=== PATIENT | male | born 1955 | race Caucasian/White ===

== ENCOUNTER 2025-02-19 11:49 | Outpatient (CLI) | payer MEDICARE, SELFPAY ==
--- NOTE | ~2025-02-19 | US_ITS ---
EXAMINATION: US arterial ankle brachial ind DATE: 02/19/2025 12:23 INDICATION: Decreased lower extremity pulses. TECHNIQUE: Segmental pressures and plethysmographic and Doppler waveforms of the brachial and lower e xtremity arteries were obtained. COMPARISON: None. FINDINGS: Right and left brachial artery pressures of 146 mm Hg and 140 mm Hg, respectively, are concordant (no rmal difference <= 30 mmHg). The right ankle-brachial index (SOLO) is 1.36 (normal >= 0.9-1.0). The right great toe-brachial index (TBI) is 0.88 (normal >= 0.65). Arterial Doppler waveforms are biphasic with brisk systolic upstrokes at both right posterior tibial and dorsalis pedis arteries. The left SOLO is 1.47. The left TBI is 0.90. Arterial Doppler waveforms biphasic with brisk systolic u pstrokes at both left posterior tibial and dorsalis pedis arteries. IMPRESSION: 1. No significant arterial occlusive disease with normal bilateral ABIs and TBIs. Reviewed, dictated and finalized at location A. IMPRESSION: 1. No significant arterial occlusive disease with normal bilateral ABIs and TBI s.
== END 2025-02-19 11:50 | disposition home or self-care (01) ==
LOC: CHSIMG 11:50
PROVIDERS: PCP Family Medicine; Visit Provider Student in an Organized Health Care Education/Training Program
DX: R09.89 Other specified symptoms and signs involving the circulatory and respiratory systems (principal); Z87.891 Personal history of nicotine dependence
CPT/HCPCS: 93922

== ENCOUNTER 2025-02-22 09:30 | Outpatient (CLI) | payer MEDICARE, SELFPAY ==
--- NOTE | ~2025-02-22 | US_ITS ---
EXAMINATION: US aorta [facility] DATE: 02/23/2025 0:11 CDT INDICATION: Personal history of nicotine dependence TECHNIQUE: Grayscale, color Doppler, and pulsed Doppler images of the aorta and common iliac arteries were obtained. COMPARISON: None. FINDINGS: The proximal aorta measures 2.9 x 2.4 cm The mid aorta measures 2.2 x 2.2 cm The distal aorta measures 2.0 x 2.1 cm The right common internal iliac artery measures 1.3 cm The left common iliac artery measures 1.3 cm IMPRESSION: No sonographic evidence of an abdominal aortic aneurysm, as detailed above. Reviewed, dictated and finalized at location A.
== END 2025-02-22 09:31 | disposition home or self-care (01) ==
PROVIDERS: PCP Family Medicine; Visit Provider Student in an Organized Health Care Education/Training Program
DX: Z87.891 Personal history of nicotine dependence (principal)
CPT/HCPCS: 76706

== ENCOUNTER 2025-04-17 14:10 | Outpatient (CLI) | payer MEDICARE, SELFPAY ==
--- NOTE | ~2025-04-17 | MR_ITS ---
MRI of the left knee Clinical history: Pain Technique: Coronal proton density and proton density-weighted images, sagittal proton-density and T2 fat-sat images, and axial proton-density fat-saturated images were acquired. Findings: Anterior cruciate ligament is intact, with some increased signal, suggestive mucoid degener ative signal, less likely partial tear. Posterior cruciate ligament is intact. Medial collateral liga ment and the lateral collateral ligament conflux are intact. Popliteus tendon is intact. There is complex tearing of the posterior horn and body of the medial meniscus which are largely mace rated appearance. No lateral meniscal tear evident. There is high-grade chondromalacia along the medial patellar facet. There is mild to moderate chondra l malacia the femoral trochlea. There is diffuse moderate chondral thinning of the lateral femoral co ndyle. There is extensive high-grade chondral malacia on both sides of the medial compartment, with s ubchondral marrow edema in the anteromedial tibial plateau. Small tricompartment osteophyte are prese nt. Extensor mechanism is intact. Small to moderate joint effusion present. No Zaragoza's cyst. Impression: Extensive complex tearing of the posterior horn and body of the medial meniscus, which are largely ma cerated. 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 Probable mucoid degenerative signal of the ACL versus less likely partial interstitial tear. Small to moderate joint effusion. Reviewed, dictated and finalized at [facility]. Impression: Extensive complex tearing of the posterior horn and body of the medial meniscus , which are largely macerated. 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 Probable mucoid degenerative signal of the ACL versus less likely partial inter stitial tear. Small to moderate joint effusion.
== END 2025-04-17 14:11 | disposition home or self-care (01) ==
LOC: GOSHIMG 14:10
PROVIDERS: PCP Orthopaedic Surgery; Visit Provider Orthopaedic Surgery
DX: S83.232A Complex tear of medial meniscus, current injury, left knee, initial encounter (principal); X58.XXXA Exposure to other specified factors, initial encounter; M17.12 Unilateral primary osteoarthritis, left knee; M25.462 Effusion, left knee
CPT/HCPCS: 73721

== ENCOUNTER 2025-08-07 00:56 | Day surgery (SDC) | payer MEDICARE, SELFPAY ==
[2025-07-27 14:08] VITALS: BMI 39.1
--- NOTE | 2025-07-27 14:28 | PC.NURSE ---
Spoke with patient regarding medication xarelto. Patient verbalizes understanding that the last dose is to be taken on 08/03/2025 and the Endoscopist will instruct them when to restart after the procedure.
[2025-08-07 10:58] VITALS: BP 142/67; PULSE 79; RESP 20; TEMP 36.8; O2SAT 95
[2025-08-07] MEDS: LACTATED RINGERS 1,000 ML 150 ML IV CONT (11:12)
--- NOTE | 2025-08-07 12:24 | WPDANESEPPF ---
Anes - Initial Pre Proc Eval Procedure: Operation Date: 08/07/25 12:30 Proposed Procedures p Screening Colonoscopy - Dave Hurtado MD Date/Time: 08/07/25 12:24 Surgeon: Dave Hurtado MD Pre Op Diagnosis: Encounter for screening for malignant neoplasm of Patient Data Age: 70 Gender: M Height: 1.68 m Weight: 106.7 kg Last Vital Signs Temp 98.3 F 08/07/25 10:58 Pulse 79 08/07/25 10:58 Resp 20 08/07/25 10:58 BP 142/67 H 08/07/25 10:58 Pulse Ox 95 08/07/25 10:58 O2 Del Method Room Air 08/07/25 10:58 Allergies Allergy/AdvReac Type Severity Reaction Status Date / Time No Known Allergies Allergy Mild Verified 08/07/25 10:56 Home Medications ?Medication ?Instructions ?Recorded ?Confirmed ?Type metformin 500 mg tablet,extended 1,000 mg (2 x 500 mg) PO BID #360 02/06/25 07/27/25 Rx release 24 hr (Glucophage XR) tabs atorvastatin 10 mg tablet See Rx Instructions .Route 03/04/25 07/27/25 Rx .COMPLEX #90 tabs lisinopril 10 mg tablet See Rx Instructions .Route 03/04/25 07/27/25 Rx .COMPLEX #90 tabs rivaroxaban 10 mg tablet 10 mg PO DAILY #90 tabs 03/21/25 08/07/25 Rx empagliflozin 10 mg tablet 10 mg PO DAILY #90 tabs 04/30/25 07/27/25 Rx (Jardiance) Laboratory Tests 08/07/25 11:08 POC Capillary Glucose 87 mg/dl (65-105) Patient hx anesthesia problems: none Family hx anesthesia problems: none Results Review: All pre-operative results and documents have been reviewed as part of the pre-operative evaluation. [facility] Past Medical History Medical History Prostate cancer screening Colon cancer screening BMI 40.0-44.9, adult History of torn meniscus of left knee terminal [facility] (current) use of anticoagulants Recurrent deep vein thrombosis (DVT) Type 2 diabetes mellitus Hypertension Surgical History Surgical History History of hernia repair Family History Family History Mother Family history of Alzheimer's disease Heart disease Father Family history of aortic aneurysm Social History Social History Smoking packs per day: 2.5 Smoking cigarettes per day: 50.0 Years smoked: 25 Smoking pack-years: 62.50 Smoking status: Former smoker (he smoked 1-2 ppd for ~35 years) Second hand tobacco smoke exposure: No Smoking end date: 10/04/08 Alcohol intake: current Drinks per week: 9 Alcohol use details: Occasional Substance use: never Substance use type: does not use Lack of Transportation: No Lack of Food: Never True Current Housing: I Have Housing Concerned About Future Housing: No Difficulty Paying Gas/Electric Bills: No Difficulty Paying for Meds: No Currently Unemployed: No Education: High School Diploma/GED Difficulty w/ Childcare or Family Care: No Living arrangements: with family Occupation/Education: retired Gender identity (if verbalized by the patient): Male Sexual Orientation (if Verbalized by the Patient): Straight or Heterosexual Spiritual care concerns: No Agree to blood products: Yes Anes - Eval Final PreProcedure Day of Procedure 08/07/25 12:24 Patient weight: obese Lungs: normal air movement Airway: Mallampati scale class II Neurological: alert and oriented Last oral intake: >/= 8 hours ASA classification: III Anesthetic plan: proceed Anesthesia type and monitoring: general GIVS and standard monitoring Results Review: All pre-operative results and documents have been reviewed as part of the pre-operative evaluation. HTN, hyperlipidemia, JOSIAS on CPAP w O2 2 L, DM fsbs 87, ex smoker quit 2009 w COPD. Pt can rubio, walks, no cp, some dypsnea w inc speed. Informed Consent: The patient's anesthetic plan and its attendant risks and benefits were discussed with the patient/family/POA. Questions were solicited and answers provided to the satisfaction of the patient/family/POA.
--- NOTE | 2025-08-07 12:39 | PM.IMHP ---
H&P: HPI History of Present Illness Date/Time: 08/07/25 12:39 Chief Complaint: Screening colonoscopy Narrative: This is the patient's 2nd colonoscopy, he had a previous colonoscopy 10 years ago. There are no GI symptoms and there is no family history of colorectal cancer. Review of Systems Review of Systems: All systems reviewed & are unremarkable except as noted in HPI and below PMFSH Past Medical History Medical History Prostate cancer screening Colon cancer screening BMI 40.0-44.9, adult History of torn meniscus of left knee group home (current) use of anticoagulants Recurrent deep vein thrombosis (DVT) Type 2 diabetes mellitus Hypertension Surgical History Surgical History History of hernia repair Family History Family History Mother Family history of Alzheimer's disease Heart disease Father Family history of aortic aneurysm Social History Social History Smoking packs per day: 2.5 Smoking cigarettes per day: 50.0 Years smoked: 25 Smoking pack-years: 62.50 Smoking status: Former smoker (he smoked 1-2 ppd for ~35 years) Second hand tobacco smoke exposure: No Smoking end date: 10/04/08 Alcohol intake: current Drinks per week: 9 Alcohol use details: Occasional Substance use: never Substance use type: does not use Lack of Transportation: No Lack of Food: Never True Current Housing: I Have Housing Concerned About Future Housing: No Difficulty Paying Gas/Electric Bills: No Difficulty Paying for Meds: No Currently Unemployed: No Education: High School Diploma/GED Difficulty w/ Childcare or Family Care: No Living arrangements: with family Occupation/Education: retired Gender identity (if verbalized by the patient): Male Sexual Orientation (if Verbalized by the Patient): Straight or Heterosexual Spiritual care concerns: No Agree to blood products: Yes Meds Home Medications and Allergies Home Medications ?Medication ?Instructions ?Recorded ?Confirmed ?Type metformin 500 mg tablet,extended 1,000 mg (2 x 500 mg) PO BID #360 05/06/25 10/24/25 Rx release 24 hr (Glucophage XR) tabs atorvastatin 10 mg tablet See Rx Instructions .Route 03/04/25 07/27/25 Rx .COMPLEX #90 tabs lisinopril 10 mg tablet See Rx Instructions .Route 03/04/25 07/27/25 Rx .COMPLEX #90 tabs rivaroxaban 10 mg tablet 10 mg PO DAILY #90 tabs 03/21/25 08/07/25 Rx empagliflozin 10 mg tablet 10 mg PO DAILY #90 tabs 04/30/25 07/27/25 Rx (Jardiance) Allergies Allergy/AdvReac Type Severity Reaction Status Date / Time No Known Allergies Allergy Mild Verified 08/07/25 10:56 Vital Signs Vital Signs - 24 hr 08/07/25 10:58 Temperature 98.3 F Pulse Rate 79 Respiratory Rate 20 Blood Pressure 142/67 H Pulse Oximetry 95 Oxygen Delivery Room Air Exam Const: General: cooperative and healthy appearing Resp: Effort & Inspection: normal respiratory effort and able to speak in complete sentences Auscultation: clear to auscultation bilaterally Cardio: Rate: regular rate Rhythm: regular rhythm GI: Inspection: normal to inspection GI Palp: No No hepatosplenomegaly present Auscultation: normal bowel sounds Rectal Exam: deferred Skin: General skin exam: normal color Psych: Appearance: grossly normal Mental Status: mental status grossly normal Assessment and Plan Assessment and plan (1) Colon cancer screening: Code(s): Z12.11 - Encounter for screening for malignant neoplasm of colon Status: Acute Assessment and Plan: The patient is deemed a good candidate for the procedure. Consent signed. Will proceed.
[2025-08-07 12:59] VITALS: BP 125/79; PULSE 86; RESP 17; O2SAT 93
[2025-08-07 13:09] VITALS: BP 133/80; PULSE 81; RESP 20; O2SAT 94
[2025-08-07 13:19] VITALS: BP 140/82; PULSE 83; RESP 19; O2SAT 95
== END 2025-08-07 13:27 | disposition home or self-care (01) ==
PROVIDERS: PCP Student in an Organized Health Care Education/Training Program; Referring Provider Family Medicine; Visit Provider Internal Medicine Gastroenterology
PROC: 0DJD8ZZ Inspection of Lower Intestinal Tract, Via Natural or Artificial Opening Endoscopic (ICD-10-PCS; CPT 45378; principal; 2025-08-07 12:30)
DX: Z12.11 Encounter for screening for malignant neoplasm of colon (principal); K64.8 Other hemorrhoids; E11.9 Type 2 diabetes mellitus without complications; I10 Essential (primary) hypertension; E78.5 Hyperlipidemia, unspecified; G47.33 Obstructive sleep apnea (adult) (pediatric); E66.9 Obesity, unspecified; Z68.38 Body mass index [BMI] 38.0-38.9, adult; Z79.01 Long term (current) use of anticoagulants; Z79.84 Long term (current) use of oral hypoglycemic drugs; Z99.89 Dependence on other enabling machines and devices; Z99.81 Dependence on supplemental oxygen; Z98.890 Other specified postprocedural states; Z87.891 Personal history of nicotine dependence; Z86.718 Personal history of other venous thrombosis and embolism; Z82.49 Family history of ischemic heart disease and other diseases of the circulatory system
CPT/HCPCS: G0121; 82948; J2003; J2704; J7120